=== PATIENT | male | born 1940 | race Caucasian/White ===

== ENCOUNTER 2016-09-06 23:08 | Inpatient (IN) | payer MEDICARE, OTHER ==
[~2016-09-06] VITALS: Ht 175.3 cm; Wt 100.5 kg
--- NOTE | ~2016-09-06 | ECHO ---
Transthoracic Echocardiography Report (TTE) Demographics Patient Name MIKE HILARIO Date of Study 09/07/2016 Patient Number [id number] Visit Number [id number] Date of 1940 Room Number G6319 Gender Male Number Age 76 year(s) Referring Process Line Operator Mina RVT, RDCS Physician Shereen Physician Interpreting Alessandro Thompson Edging Machine Feeder Physician Myles Lira MD Supervising Ordering Teresa Klein MD, MD/MLP Physician Nurse Stress Manager Of Exhibitions And Collections Conclusions Summary Dilated cardiomyopathy with severely reduced LV systolic function with regional wall motion abnormalities. The entire apex and anteroseptal pires appear akinetic. Diastolic assessment reveals Grade I diastolic dysfunction. Device lead noted in the right ventricle. Mild biatrial enlargement. There is mild aortic regurgitation by color Doppler. Procedure Type of Study TTE procedure:2D Echocardiogram, M-Mode, Doppler , Color Doppler. Procedure Date Date: 09/07/2016 Start: 09:27 AM Study Location: Inpatient Portable Technical Quality: Adequate visualization Additional Indications:elevated troponin Appropriate Use Criteria: 9 Patient Status: Routine HR: 109 bpm BP: 117/69 mmHg Allergies - No known allergies. M-Mode/2D Measurements LV Diastolic Dimension: 7.24 cm LV Systolic Dimension: 6.65 cm LV Septum Diastolic: 0.87 cm LV PW Diastolic: 1.08 cm AO Root Dimension: 3.3 cm Cardiac Output: 6.75 l/min AV Cusp Separation: 1.4 cm RV Diastolic Dimension: 2.95 cm LA volume: 40 ml LVOT: 2.2 cm RV Base: 3.41 cm LVOT VTI: 16.3 cm RV Mid: 2.68 cm LV Stroke volume: 61.93 ml TAPSE: 2.52 cm TDI-S': 16.1 cm/s Doppler Measurements AV Peak Velocity: 0.81 m/s MV Peak E-Wave: 0.52 m/s AV Peak Gradient: 2.61 mmHg MV Peak A-Wave: 0.71 m/s AV Mean Gradient: 2 mmHg MV E/A Ratio: 0.74 LVOT Peak Velocity: 0.69 m/s MV P1/2t: 49 msec AV P1/2t: 762 msec TR Gradient:5.66 mmHg PV Peak Velocity: 0.67 m/s Estimated RAP:10 mmHg PV Peak Gradient: 1.77 mmHg Estimated RVSP: 16 mmHg Estimated PASP: 15.66 mmHg E' Septal Velocity: 0.03 m/s A' Septal Velocity: 0.07 m/s E' Lateral Velocity: 0.05 m/s A' Lateral Velocity: 0.1 m/s Findings Left Ventricle The left ventricle is moderately dilated . Diastolic assessment reveals Grade I diastolic dysfunction. Right Ventricle Normal right ventricle structure and function. Device lead noted in the right ventricle. Left Atrium LA is mildly dilated. Right Atrium The right atrium is mildly dilated. IVC measures 2.4 cm. Mitral Valve Trivial mitral regurgitation by color Doppler. Aortic Valve There is mild aortic regurgitation by color Doppler. Mild AV sclerosis. Tricuspid Valve Trivial tricuspid regurgitation by color Doppler. Pulmonic Valve Normal pulmonic valve structure and function. Pericardial Effusion No evidence of pericardial effusion. Pleural Effusion No evidence of pleural effusion. Signature dtt: MARYCARMEN KATZ dtd: 09/07/16 0927 Physician Self Edit
--- NOTE | ~2016-09-06 | DS ---
PATIENT'S NAME: MIKE HILARIO [facility] AGE: 76 Y [address] ROOM: [place] [address] LOCATION: GPCU ADMIT DATE: 09/07/2016 Discharge Summary DISCHARGE DATE: 09/10/2016 FAMILY PHYSICIAN: Physician, Unknown ATTENDING PHYSICIAN: Cornelius Moore PRIMARY DIAGNOSES: 1. Ischemic cardiomyopathy, ejection fraction 10% to 15%. 2. Ventricular tachycardia, status post automatic implantable cardioverter- defibrillator discharge. 3. Atrial fibrillation/flutter. 4. Long-term anticoagulation with warfarin. 5. Essential hypertension. 6. Coronary artery disease. 7. Obstructive sleep apnea. 8. Chronic kidney disease, stage 3. 9. Hypothyroidism. 10. Benign prostatic hypertrophy. 11. History of colon cancer. OPERATIONS/PROCEDURES: Echocardiogram performed 09/07/[address] Bueno showed dilated cardiomyopathy with severely reduced LV systolic function, grade 1 diastolic dysfunction, and biatrial enlargement. HISTORY OF PRESENTING ILLNESS/REASON FOR ADMISSION: Please refer to the H and P dictated 09/07/2016. HOSPITAL COURSE: The patient is admitted to the hospital as noted above after multiple AICD discharge at home. This occurred in the setting of working outside and exerting himself. AICD interrogation revealed that the rhythm shocked was ventricular tachycardia degrading to ventricular fibrillation. There was successful cardioversion on the final AICD discharge. The patient was hemodynamically stable over the course of his hospital stay here. He did not have any significant events noted on telemetry. There was overdrive pacing noted on telemetry monitoring. Cardiology was consulted and echocardiography was carried out as described above. He was monitored and maintained on his amiodarone. It was suggested that he may have eventual followup with Cardiology and ultimately electrophysiology for an evaluation. DISCHARGE INSTRUCTIONS: 1. Diet: Cardiac prudent as tolerated, fluid restrict 2000 mL per day. 2. Activity: As tolerated. PATIENT'S NAME: MIKE HILARIO [facility] AGE: 76 Y [address] ROOM: [place] [address] LOCATION: GPCU ADMIT DATE: 09/07/2016 Discharge Summary DISCHARGE DATE: 09/10/2016 FAMILY PHYSICIAN: Physician, Unknown ATTENDING PHYSICIAN: Cornelius Moore MEDICATIONS: 1. Coumadin 3 mg p.o. every Thursday, Thursday, Thursday, 1.5 mg p.o. every Thursday, , Thursday, Thursday. 2. Amiodarone 400 mg p.o. b.i.d. (increased dose). 3. Aspirin 81 mg p.o. daily. 4. Atorvastatin 80 mg p.o. q.h.s. 5. Carvedilol 12.5 mg p.o. b.i.d. 6. Colace 100 mg p.o. b.i.d. 7. Lasix 20 mg p.o. daily. 8. Isosorbide mononitrate 15 mg p.o. daily. 9. Levothyroxine 88 mcg p.o. daily. 10. Lisinopril 5 mg p.o. daily. 11. Omeprazole 20 mg p.o. b.i.d. 12. Potassium 20 mEq p.o. b.i.d. 13. Spironolactone 25 mg p.o. daily. 14. Flomax 0.4 mg p.o. q.h.s. 15. Acetaminophen 650 mg p.o. q.6 h. p.r.n. 16. CPAP at h.s. 17. Oxygen 2 L per nasal cannula at h.s. with CPAP. 18. Ocuvite Soft Gel 1 tab p.o. q.h.s. 19. Naproxen 220 mg p.o. b.i.d. p.r.n. FOLLOW UP: He will follow up with Dr. Luevano in 2 weeks. He will follow up with his primary care provider in 3 to 5 days. CONDITION ON DISCHARGE: Fair. Total time spent on discharge process was 45 minutes. MD VERNON CORNEJO/darlin /[id number] d: 09/11/16 0343 t: 09/11/16 1726, DISCHARGE SUMMARY
--- NOTE | ~2016-09-06 | HP ---
PATIENT'S NAME: PAINTER [facility] AGE: 76 Y [address] ROOM: [address] [address] [facility] ADMIT DATE: 09/07/2016 History & Physical DISCHARGE DATE: FAMILY PHYSICIAN: PHYSICIAN, UNKNOWN ATTENDING PHYSICIAN: CATIE WILDE DATE OF SERVICE: CHIEF COMPLAINT: AICD firing associated with presyncope and shortness of breath during the AICD firing. 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 yesterday, the patient felt lightheaded and his AICD shocked 4 times. The shock was very painful and at the same time associated with some shortness of breath. After that, the patient was trying to walk to the bathroom. On his way to the bathroom, he had 3 other shocks delivered. This was half an hour later after the first four shocks were delivered. The patient denies any syncope or any chest pain except AICD firing that caused the pain. No cough. No fever. No chills and no palpitation. Family member then brought the patient to [facility]. The patient has not had any more AICD firing. EKG over there performed showed paced rhythm. The patient was later transferred here for further care. REVIEW OF SYSTEMS: As mentioned in the history of present illness. All other system were reviewed and were negative except those mentioned in the history of present illness. PAST MEDICAL HISTORY: 1. Paroxysmal atrial fibrillation, on Coumadin. 2. History of systolic congestive heart failure. 3. Hypertension. 4. Hyperlipidemia. 5. Coronary artery disease, status post stents placed in the past. 6. Ischemic cardiomyopathy, status post AICD implantation, BiV-ICD placement [facility] in 2006 according to the patient. 7. Most recent transthoracic echo was on January 21, 2016 showed EF of 15% to 20% with grade 2 pseudonormal diastolic function. 8. On April 16, 2016, the patient underwent 3 internal shocks cardiac cardioversion via internal cardiac defibrillator. 9. History of colon cancer, status post colectomy in the past. 10. Hypothyroidism. PATIENT'S NAME: [facility] AGE: 76 Y [address] ROOM: [address] [place], [place] [address] [facility] ADMIT DATE: 09/07/2016 History & Physical DISCHARGE DATE: FAMILY PHYSICIAN: PHYSICIAN, UNKNOWN ATTENDING PHYSICIAN: CATIE WILDE 11. Benign prostatic hypertrophy. 12. CKD stage 3. 13. Obstructive sleep apnea. 14. Most recent cardiac catheterization based on [employer] was on January 21, 2016. At that time, it shows severe one-vessel coronary artery disease with occluded stent in the mid LAD, and the patient got PCI to LAD. ALLERGIES: NO KNOWN DRUG ALLERGIES ACCORDING TO THE PATIENT. HOME MEDICATIONS: The patient does not remember. Needs to be reconciled with the pharmacy in the morning. SOCIAL HISTORY: The patient was a former cigarette smoker when he was 18 years old. He only smoked for half pack per day only for few years and then he quit. The patient is a social alcohol drinker. He denies any alcohol abuse. The patient denies any illegal drug use. PAST SURGICAL HISTORY: 1. Status post AICD implantation in 2006 according to the patient. 2. Coronary artery disease, status post cardiac stents placed in the past. 3. Colon cancer, status post colectomy. FAMILY HISTORY: Father from old age in his 70s from a blood clot in the brain. Mother from old age from a cause that he could not remember in her 90s. PHYSICAL EXAMINATION: VITAL SIGNS: At the time of dictation, temperature 98, heart rate 75, respiration 13, blood pressure 147/89, saturation 97% on room air. GENERAL APPEARANCE: Alert and oriented x3, in no acute distress. HEENT: Pupils are equally round and reactive to light. Extraocular muscles intact. Anicteric sclerae. Nasal turbinates are normal bilaterally. Moist oral mucosa. NECK: No JVD. No neck stiffness. CARDIOVASCULAR: Regular rate and rhythm. No murmur. No rubs, no gallops. Normal S1, S2. RESPIRATORY: Clear to auscultation. No rales. No rhonchi. No crackles. No wheezing. ABDOMEN: Soft, obese, nontender, nondistended, normal bowel sounds, no hepatosplenomegaly. Bowel sounds are present. EXTREMITIES: No edema in upper or lower extremities. PATIENT'S NAME: MIKE HILARIO [facility] AGE: 76 Y [address] ROOM: [address] [place], [place] [address] [facility] ADMIT DATE: 09/07/2016 History & Physical DISCHARGE DATE: FAMILY PHYSICIAN: PHYSICIAN, UNKNOWN ATTENDING PHYSICIAN: CATIE WILDE NEUROLOGIC: Grossly Nonfocal. SKIN: No ulcer, no rash, no cyanosis. MUSCULOSKELETAL: No joint pain. No muscle pain. Range of motion intact. LABORATORY DATA: Troponin 2.740, CPK 274, proBNP 1790, CK-MB 6.5. White blood cells 7.4, hemoglobin 12.4, hematocrit 38.8, MCV 97.5, platelet 165. Glucose 92, BUN 27, creatinine 1.9, sodium 146, potassium 4.1, chloride 113, CO2 of 26, calcium 7.4. Total protein 6.4, albumin 3.1, AST 23, ALT 23, alkaline phosphatase 90, total bilirubin 0.4, direct bilirubin less than 0.1. Magnesium 2.3. GFR 34. Anion gap 11.1. INR 2.4, PTT 38. IMAGING DATA: EKG from the outside facility performed at 9:32 p.m. in [place] showed paced rhythm. EKG here on admission on September 07, 2016, at 1:26 a.m. showed paced rhythm, also heart rate 77. Chest x-ray on admission, official reading is pending. Based on my review, grossly unremarkable. ASSESSMENT AND PLAN: 1. Regarding his AICD firing: We will have AICD pacemaker interrogation in the morning. Currently, the patient is in paced rhythm. Heart rate in the 70s, blood pressure in the 140s. I will watch the patient very closely in the PCU with telemetry monitoring, and if the patient shows any rhythm of ventricular tachycardia, then amiodarone bolus followed by drip will be started. The patient's home medication has to be addressed with the pharmacy in the morning, and then can be addressed. I will also repeat EKG in the morning and place a Cardiology consult in the morning and also cycle cardiac enzymes and keep the potassium more than 4 and magnesium more than 2. Further plan depends on clinical course. 2. Regarding his troponin elevation secondary to non-ST elevation myocardial infarction and AICD shocks: The patient's INR is already therapeutic. I will start the patient on ACS protocol except heparin drip or nitroglycerin drip given that the patient currently is chest pain-free and is comfortable, resting in bed. Further plan depends on clinical course. I will get a transthoracic echo in the morning. N.p.o. 3. Regarding his history of coronary artery disease, status post stents placed in the past and PCI to LAD in January 2016: As mentioned before, we will cycle cardiac enzymes. Repeat EKG and also start the ACS protocol and have a pacemaker interrogation in the morning. Watch him very closely in the PCU. 4. Regarding his history of Paroxysmal atrial fibrillation: Currently paced rhythm. INR is already therapeutic. We will repeat labs in the morning. Telemetry monitoring. Keep the electrolytes with potassium more than 4, PATIENT'S NAME: MIKE HILARIO [facility] AGE: 76 Y [address] ROOM: [address] [place], [place] [address] [facility] ADMIT DATE: 09/07/2016 History & Physical DISCHARGE DATE: FAMILY PHYSICIAN: PHYSICIAN, UNKNOWN ATTENDING PHYSICIAN: CATIE WILDE magnesium more than 2. If the patient goes into atrial fibrillation with rapid ventricular response, we will start amiodarone drip. Home medication has to be reconciled with the patient's pharmacy in the morning and then can be addressed. 5. Regarding his history of systolic congestive heart congestive: Currently, the patient seems euvolemic. While the patient is n.p.o., I will give him gentle hydration at a slow rate. 6. Regarding his hypertension. Home medication will be addressed in the morning once the patient's medication list is ready. We will be using beta radha as part of the ACS protocol for now. 7. Regarding his hyperlipidemia: We will check A1c and also a lipid panel in the morning, and the patient will be getting the Lipitor 80 mg x1 and then daily per ACS protocol. 8. History of ventricular tachycardia: Currently paced rhythm. If the patient goes into ventricular tachycardia, we will start the patient on amiodarone bolus, then followed by drip. Currently, the patient is hemodynamically stable. 9. Regarding his hypothyroidism: We will check a TSH and wait for the home medication list to be ready, then can assess if the home medication dose has to be adjusted. 10. History of chronic kidney disease stage 3: Currently is at baseline. IV fluids while n.p.o. with gentle hydration. 11. Deep venous thrombosis: INR is already therapeutic. Time spent in care on the day of admission 45 minutes including chart review, interviewing the patient, addressing all the questions and concerns of the patient, examining the patient, and went over the plan of care in detail with the patient and the nurse. Half of the total time was spent in chart review, interviewing and examining the patient. The other half of the total time was spent in counseling, including going over the plan of care and also addressing all the patient's questions and concerns to his satisfaction. Further plan will depend on clinical course. MD TONY ALFONSO/darlin /[id number] D: [id number] T: [id number] HISTORY & PHYSICAL
--- NOTE | ~2016-09-06 | CON ---
PATIENT'S NAME: MIKE DOTY [facility] AGE: 76 Y [address] ROOM: [place] [address] LOCATION: GPCU ADMIT DATE: 09/07/2016 Consultation DISCHARGE DATE: FAMILY PHYSICIAN: PHYSICIAN, UNKNOWN ATTENDING PHYSICIAN: CATIE WILDE DATE OF CONSULTATION: 09/07/2016 REFERRING PHYSICIAN: RAMONA MAYO MD CARDIOLOGY CONSULTATION REPORT REFERRING PHYSICIAN: Catie Wilde MD REASON FOR CONSULTATION: Recurrent ICD discharges. HISTORY OF PRESENT ILLNESS: Mr. Doty is a pleasant 76-year-old male with history of ischemic cardiomyopathy with left ventricle ejection fraction of 15% to 20% status post ICD placement. 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 The patient stated the shocks were painful. No loss of consciousness. He was seen in local emergency room and then was subsequently transferred here for further management. He normally follows with Dr. Luevano. Presently, he is asymptomatic. REVIEW OF SYSTEMS: The patient complained of mild diminution in vision. No history of nausea or vomiting. No history of diarrhea or constipation. No history of fever. No history of cough or expectoration. Has chronic mild shortness of breath. However, patient denied any recent worsening. No history of palpitations. No history of syncope. No history of fever. Review of other systems was essentially negative. PAST MEDICAL HISTORY: 1. History of ischemic cardiomyopathy. 2. Ventricular tachycardia. 3. Paroxysmal atrial fibrillation. 4. Coronary artery disease. 5. Chronic systolic heart failure with ejection fraction of 15% to 20% status post Bi-V ICD placement. 6. Hypertension. 7. History of colon cancer. 8. Hypothyroidism. 9. BPH. PATIENT'S NAME: MIKE DOTY [facility] AGE: 76 Y [address] ROOM: [place] [address] LOCATION: GPCU ADMIT DATE: 09/07/2016 Consultation DISCHARGE DATE: FAMILY PHYSICIAN: PHYSICIAN, UNKNOWN ATTENDING PHYSICIAN: CATIE WILDE SOCIAL HISTORY: The patient lives with his at home. He works on the farm. FAMILY HISTORY: The patient stated his parents did not have any coronary artery disease. Per his chart, one of his brothers had coronary artery disease. PAST SURGICAL HISTORY: 1. History of inguinal hernia repair. 2. Colonoscopy with polypectomy. 3. Colon resection in 2016. CURRENT MEDICATIONS: Include: 1. Aspirin 81 mg daily. 2. Atorvastatin 80 mg daily. 3. Metoprolol tartrate 25 mg b.i.d. PHYSICAL EXAMINATION: GENERAL APPEARANCE: He is awake, alert, and oriented. His pulse rate is 81 beats per minute, blood pressure is 119/68 mmHg, respiratory rate is 18, and temperature is 36.7 degrees centigrade. HEENT: Head is atraumatic and normocephalic. Tongue is moist. NECK: No significant jugular venous distention is present. CARDIOVASCULAR: S1 and S2 are audible. They are regular in rate and rhythm with no audible murmurs. RESPIRATORY: Bilateral vesicular breath sounds are audible with no adventitious sounds. ABDOMEN: Mildly distended. Soft. Nontender. Bowel sounds are present. EXTREMITIES: Showed no significant pedal edema. NEUROLOGIC: The patient is awake, alert, and oriented. SKIN: Warm and dry. MUSCULOSKELETAL: The patient has 5/5 power in all 4 extremities. LABORATORY DATA: Sodium 148, potassium 4.0, chloride 113, CO2 of 27, glucose 94, BUN 24, and creatinine 1.7. Serum creatinine was 2.3 in April. Magnesium is 2.5. Total cholesterol 188, HDL 38, and LDL 120. CPK 260, CK-MB 6.3, and troponin 3.4, and his serial troponins were 2.74 and 3.4. White blood cell count 7.4, hemoglobin 12.4, hematocrit 38.8, and platelet count 165,000. The patient had catheterization in 2015 which showed severe one-vessel CAD with occluded stent in mid LAD. His echocardiogram showed ejection fraction of 15% to 20%, moderate aortic regurgitation, [id number] tricuspid regurgitation, and moderate to severely reduced right ventricular systolic function. PATIENT'S NAME: MIKE DOTY [facility] AGE: 76 Y [address] ROOM: [id number] [place] [id number] [facility] ADMIT DATE: 09/07/2016 Consultation DISCHARGE DATE: FAMILY PHYSICIAN: PHYSICIAN, UNKNOWN ATTENDING PHYSICIAN: CATIE WILDE ASSESSMENT AND PLAN: 1. Ischemic cardiomyopathy with ejection fraction of 15% to 20%. No clinical evidence of decompensation. 2. Status post biventricular implantable cardioverter-defibrillator placement with recurrent shocks. We will get implantable cardioverter- defibrillator interrogation to determine the etiology for the shocks. 3. Chronic renal insufficiency. 4. Elevated troponin. Elevated troponin is likely due to recurrent implantable cardioverter-defibrillator shocks. The patient had 7 implantable cardioverter-defibrillator shocks. However, in view of coronary artery disease, we will consider stress test to evaluate for new ischemia. We will continue to monitor patient on telemetry. We will monitor electrolytes and keep potassium around 4 mEq/L and magnesium around 2 mmol/dL. 5. The plan of care was discussed with the patient. We will follow the patient along with you. Thank you for allowing [facility] in taking part in the care of this patient. MD JEANA GONZALES/darlin /[id number] d: 09/07/16 1404 t: 09/25/16 1745, CONSULTATION REPORT
[~2016-09-06 23:08] MED LIST changes: -ALDACTONE25 MG PO; -BIOFREEZE89 ML TOP; -COREG6.25 MG PO; -LIPITOR80 MG PO; -TYLENOL325 MG PO; -ZOCOR20 MG PO
[2016-09-07 01:43] LABS: BASOPHIL % 0.5 %; EOSINOPHIL # 0.1 K/uL (0.0-0.5); EOSINOPHIL % 1.5 %; HEMATOCRIT 38.8 % (37.0-53.0); HEMOGLOBIN 12.4 g/dL (11.0-16.0); IMMATURE GRANULOCYTE % 0.3 %; LYMPHOCYTE # 1.5 K/uL (0.8-4.0); LYMPHOCYTE % 19.9 %; MCH 31.2 pg (27.0-34.0); MCV 97.5 fl (83.0-98.0); MONOCYTE # 0.9 K/uL (0.0-1.0); MONOCYTE % 12.2 %; NEUTROPHIL # (ANC) 4.8 K/uL (1.4-9.0); NEUTROPHIL % 65.6 %; NRBC % 0 /100WBC (0-0.00); PLATELET COUNT 165 K/uL (150-450); RBC 3.98 M/uL (3.50-5.50); RDW-CV 16.7 % (11.9-14.6); WBC 7.4 K/uL (4.0-11.0)
[2016-09-07 01:52] LABS: PROTIME 25.4 SECONDS (9.8-11.4); PTT 38 SECONDS (25-32)
[2016-09-07 02:04] LABS: ALBUMIN 3.1 gm/dL (3.5-5.0); ALK PHOS 90 IU/L (33-138); ALT 23 IU/L (12-78); AST 23 IU/L (10-40); BLOOD UREA NITROGEN 27 mg/dL (6-24); CALCIUM 7.9 mg/dL (8.5-10.5); CHLORIDE 113 mMol/L (96-110); CO2 26 mMol/L (22-32); CPK 274 IU/L (35-332); CREATININE 1.9 mg/dL (0.6-1.3); ESTIMATED GFR (MDRD EQUATION) 34; MAGNESIUM 2.3 mg/dL (1.8-2.6); POTASSIUM 4.1 mMol/L (3.7-5.1); TOTAL BILIRUBIN 0.4 mg/dL (0.0-1.5); TOTAL PROTEIN 6.4 g/dL (6.0-8.4)
[2016-09-07 02:05] LABS: ANION GAP 11.1 (10.0-19.0); SODIUM 146 mMol/L (135-145)
--- NOTE | 2016-09-07 03:33 | NUR ---
D: PT ADMITED PER FLIGHT FROM [facility]. PT HAD C/O AICD FIRING X 7 FROM [id number]. INTO ROOM 6319 I: DR. WILDE IN TO SEE PT, SEE ORDERS. R: TOLERATED WELL. NO VT ON BRICK AND BLOCKER AID LABOR SINCE ARRIVAL. NOTED TO HAVE DUAL PACING 100% OF TIME. P: CONT. TO MONITOR.
--- NOTE | 2016-09-07 05:15 | NUR ---
Significant Event: Patient is alert/oriented x3. Vital signs are stable. On 2L O2. He has not had any issues with AICD firing since being on the floor. Denies any pain. Currently NPO and on IV fluids. Trending cardiac enzymes; TN-I was 0.52 in [facility] around 2230 and TN-I was 2.740 here around 0100. Labs do show some renal insufficiency. Patient denies any ACS-like symptoms. Follow up: Cardiology consult, EKG, and AICD interrogation this AM. Continue to monitor cardiac enzymes.
[2016-09-07 07:20] LABS: INR - (THERAPEUTIC) 2.37 (0.92-1.07); PROTIME 25.1 SECONDS (9.8-11.4)
[2016-09-07 07:35] LABS: CREATININE 1.7 mg/dL (0.6-1.3); MAGNESIUM 2.5 mg/dL (1.8-2.6)
[2016-09-07] MEDS ORDERED: COREG6.25 MG PO (10:18)
[2016-09-07] MEDS ORDERED: ALDACTONE25 MG PO (10:19)
--- NOTE | 2016-09-07 17:58 | NUR ---
Significant Event: SBP 100-117. HR 60-70'S. PACER/AICD INTERROGATED WITH CONFIRMATION OF SHOCKS AND ARRHYTHMIA. HOME MEDICATIONS ADJUSTED WITH PARAMETERS AVAILABLE. NO C/O PAIN. SBA WITH ACTIVITY. NA+ 146 WITH D5W GOING AT 50ML/HR VIA R) PIV. L) AC PIV SL'D. ECHO TODAY. TROPONIN TRENDING DOWN WITH LAST LEVEL 1.9. Follow up: LABS IN AM. CONT D5W AT 50ML/HR. MONITOR PER PLAN OF CARE.
--- NOTE | 2016-09-08 05:00 | NUR ---
Significant Event: Patient is alert/oriented x3. Vital signs are stable. On room air. Denies any pain. No ectopy throughout the night. Cardiac enzymes trending down. Continues on D5W at 50 mL/hr. Follow up: Might get stress test?
[2016-09-08 07:24] LABS: BASOPHIL % 0.8 %; EOSINOPHIL # 0.1 K/uL (0.0-0.5); EOSINOPHIL % 2.6 %; HEMATOCRIT 37.4 % (37.0-53.0); HEMOGLOBIN 11.9 g/dL (11.0-16.0); IMMATURE GRANULOCYTE % 0.4 %; LYMPHOCYTE # 1.2 K/uL (0.8-4.0); LYMPHOCYTE % 23.4 %; MCH 31.2 pg (27.0-34.0); MCHC 31.8 gm/dL (32.0-36.5); MCV 98.2 fl (83.0-98.0); MONOCYTE # 0.6 K/uL (0.0-1.0); MONOCYTE % 12.3 %; MPV 9.6 fl (9.4-12.4); NEUTROPHIL # (ANC) 3.1 K/uL (1.4-9.0); NEUTROPHIL % 60.5 %; NRBC % 0 /100WBC (0-0.00); PLATELET COUNT 146 K/uL (150-450); RBC 3.81 M/uL (3.50-5.50); RDW-CV 16.2 % (11.9-14.6); WBC 5.1 K/uL (4.0-11.0)
[2016-09-08 07:30] LABS: INR - (THERAPEUTIC) 2.34 (0.92-1.07); PROTIME 24.8 SECONDS (9.8-11.4)
[2016-09-08 07:38] LABS: ALBUMIN 2.8 gm/dL (3.5-5.0); CALCIUM 7.9 mg/dL (8.5-10.5); CREATININE 1.4 mg/dL (0.6-1.3); MAGNESIUM 2.5 mg/dL (1.8-2.6); TOTAL BILIRUBIN 0.4 mg/dL (0.0-1.5); TOTAL PROTEIN 5.8 g/dL (6.0-8.4)
--- NOTE | 2016-09-08 17:12 | NUR ---
Significant Event: FIRST BP THIS AM 106/61 WITH COREG AND IMDUR GIVEN SCHEDULED. ALL OTHER AM BP MEDS HELD D/T SBP 70-90'S. PER DR MAYO, COREG AND AMIODARONE MOST IMPORTANT AND TO RECEIVE FIRST BEFORE ANY OTHER MEDS IF SBP WITHIN PARAMETERS. NO C/O PAIN. PIV DC'D FROM L) AC D/T LEAKING WITH R) INNER FA PIV SL'D. WORKED WITH THERAPY TODAY. SBA WITH BM NOTED AND VOIDS ADEQ AMT PER URINAL. Follow up: LABS IN AM. CONT TO MONITOR.
[2016-09-09 03:57] LABS: BASOPHIL # 0.1 K/uL (0.0-0.2); BASOPHIL % 0.9 %; EOSINOPHIL # 0.1 K/uL (0.0-0.5); EOSINOPHIL % 2.4 %; HEMATOCRIT 39.3 % (37.0-53.0); HEMOGLOBIN 12.4 g/dL (11.0-16.0); IMMATURE GRANULOCYTE % 0.2 %; LYMPHOCYTE # 1.4 K/uL (0.8-4.0); LYMPHOCYTE % 23.7 %; MCH 30.8 pg (27.0-34.0); MCHC 31.6 gm/dL (32.0-36.5); MCV 97.8 fl (83.0-98.0); MONOCYTE # 0.8 K/uL (0.0-1.0); MONOCYTE % 13.5 %; MPV 9.8 fl (9.4-12.4); NEUTROPHIL # (ANC) 3.4 K/uL (1.4-9.0); NEUTROPHIL % 59.3 %; NRBC % 0 /100WBC (0-0.00); PLATELET COUNT 155 K/uL (150-450); RBC 4.02 M/uL (3.50-5.50); RDW-CV 16.2 % (11.9-14.6); WBC 5.8 K/uL (4.0-11.0)
[2016-09-09 04:21] LABS: ANION GAP 12.3 (10.0-19.0); CALCIUM 8.1 mg/dL (8.5-10.5); CREATININE 1.6 mg/dL (0.6-1.3); MAGNESIUM 2.4 mg/dL (1.8-2.6); PHOSPHORUS 2.7 mg/dL (2.5-4.9); POTASSIUM 4.3 mMol/L (3.7-5.1)
[2016-09-09 10:31] LABS: INR - (THERAPEUTIC) 2.15 (0.92-1.07); PROTIME 22.8 SECONDS (9.8-11.4)
--- NOTE | 2016-09-09 12:15 | NUR ---
Introduced self and care management services to patient. Lies in [place] with . Plans on going home on discharge, denies concerns about going home, denies needs, is independent and active and has family to help if needed. Complaint Clerk will follow and assist with dc planning as needs identified.
--- NOTE | 2016-09-09 19:02 | NUR ---
Significant event: A&Ox3, denies cardiac pain, does have chronic back pain. Up SBA. Had 1 vd and then 350 ml in urinal after educating patient on needs I&O's. Fluid restriction started. Follow Up: Possibly home tomorrow?
--- NOTE | 2016-09-10 04:49 | NUR ---
Significant Event: A/0 X 3, SBP 100 TO 115, HR 60'S TO 70'S, DID HAVE TO PUT 2L 02 ON WHILE SLEEPING. AFEBRILE. ONLY COMPLICATIONS DURING SHIFT WAS SOME BACK PAIN. ICEY/HOT APPLIED AND HE HAS RESTED WELL THE REST OF THE EVENING WITH NO COMPLICATIONS. Follow up: POSSIBLE DISCHARGE TO HOME TODAY
[2016-09-10 06:58] LABS: ALBUMIN 2.9 gm/dL (3.5-5.0); CALCIUM 8.2 mg/dL (8.5-10.5); CREATININE 1.7 mg/dL (0.6-1.3); PHOSPHORUS 2.7 mg/dL (2.5-4.9)
[2016-09-10 07:03] LABS: ANION GAP 11.4 (10.0-19.0); POTASSIUM 4.4 mMol/L (3.7-5.1)
[2016-09-10] MEDS ORDERED: LIPITOR80 MG PO (10:18)
[2016-09-10] MEDS ORDERED: TYLENOL325 MG PO (10:36)
[2016-09-10] MEDS ORDERED: BIOFREEZE89 ML TOP (10:42)
[2016-09-10] MEDS ORDERED: COUMADIN ** IA3 MG PO (10:49)
--- NOTE | 2016-09-10 13:19 | NUR ---
PATIENT STABLE, A&OX3, DENIES CARDIAC PAIN, DOES HAVE CHRONIC BACK PAIN TREATING WITH TYLENOL AND ICY HOT. EDUCATED PATIENT ON DISCHARGE INSTRUCTIONS, HOME MEDICATION LIST, AND GIVEN PRESCRIPTIONS.
== END 2016-09-10 11:40 | disposition disaster alternative care site (69) | DRG 303 ==
LOC: GPCU 23:08
PROVIDERS: Family Medicine; Internal Medicine Interventional Cardiology; Nurse Practitioner Acute Care; ADMIT Internal Medicine
PROC: B246ZZZ Ultrasonography of Right and Left Heart (ICD-10-PCS; principal; 2016-09-07)
DX: I25.5 Ischemic cardiomyopathy (principal); I47.2 Ventricular tachycardia; E11.22 Type 2 diabetes mellitus with diabetic chronic kidney disease; I13.0 Hypertensive heart and chronic kidney disease with heart failure and stage 1 through stage 4 chronic kidney disease, or unspecified chronic kidney disease; I50.32 Chronic diastolic (congestive) heart failure; I50.22 Chronic systolic (congestive) heart failure; E03.9 Hypothyroidism, unspecified; N18.3 Chronic kidney disease, stage 3 (moderate); I48.0 Paroxysmal atrial fibrillation; E78.5 Hyperlipidemia, unspecified; Z95.810 Presence of automatic (implantable) cardiac defibrillator; Z85.038 Personal history of other malignant neoplasm of large intestine; G47.33 Obstructive sleep apnea (adult) (pediatric)
CPT/HCPCS: J3480; J7060

== ENCOUNTER → 2016-09-06 | Outpatient (CLI) | payer MEDICARE, OTHER ==
[~2016-09-06] MED LIST: ALDACTONE25 MG PO; ALEVE220 MG PO; ASPIRIN EC81 MG PO; ASPIRIN325 MG PO; BIOFREEZE89 ML TOP; COLACE100 MG PO; CORDARONE,PACE200 MG PO; COREG6.25 MG PO; COUMADIN ** IA3 MG PO; CPAP INH; FLOMAX0.4 MG PO; IMDUR30 MG PO; K-TAB ER20 MEQ PO; LASIX20 MG PO; LEVOTHROID (SY88 MCG PO; LIPITOR80 MG PO; LOPRESSOR25 MG PO; OCUVITE SOFTGE1 EACH PO; OXYGEN M-15 INH; POTASSIUM GLUCO99 MG PO; PRILOSEC20 MG PO; PRINIVIL (ZESTRI5 MG PO; SINGULAIR10 MG PO; TYLENOL325 MG PO; XELODA500 MG PO; ZOCOR20 MG PO
== END | disposition disaster alternative care site (69) ==
LOC: GAIR 23:59
DX: I49.9 Cardiac arrhythmia, unspecified (principal); I50.9 Heart failure, unspecified; I42.9 Cardiomyopathy, unspecified; T82.198A Other mechanical complication of other cardiac electronic device, initial encounter; I48.91 Unspecified atrial fibrillation; E78.5 Hyperlipidemia, unspecified; R06.02 Shortness of breath; R60.9 Edema, unspecified; R42 Dizziness and giddiness; Z85.038 Personal history of other malignant neoplasm of large intestine
CPT/HCPCS: A0422; A0431; A0436

== ENCOUNTER 2016-09-18 00:33 | Inpatient (IN) | payer MEDICARE, OTHER ==
[~2016-09-18] VITALS: Ht 175.3 cm; Wt 99.9 kg
--- NOTE | ~2016-09-18 | HP ---
PATIENT'S NAME: MIKE HILARIO [facility] AGE: 76 Y [address] ROOM: [id number] [place], [place] [address] LOCATION: GPCU ADMIT DATE: 09/18/2016 History & Physical DISCHARGE DATE: FAMILY PHYSICIAN: PHYSICIAN, UNKNOWN ATTENDING PHYSICIAN: CATIE WILDE DATE OF SERVICE: CHIEF COMPLAINT: AICD discharge seven times. HISTORY OF PRESENT ILLNESS: This is a 76-year-old male who says that around 6 p.m. 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 He went back home to try to get some rest and then he felt another 4 shocks again. So, he called his and he was brought to [place] for evaluation. EKG from outside facility at [place] did not show evidence of a ventricular tachycardia but with a paced rhythm. This was given to me by verbal report. I do not find the EKG upon patient arrival. I will put a request for them to send EKG from the outside facility. The patient was later transferred here for further care. The patient has not had any more AICD discharge since then. The patient denies any chest pain or shortness of breath or fever or chills or cough or palpitation or any other symptoms. He did have a chest pain when he got a shock, but after the shock he denies any chest pain. The patient was also recently discharged from our hospital roughly a week ago for the same problem. Based on the discharge summary, the patient was supposed to see his primary stem crusher for followup to see if he could benefit from Electrophysiology for possible ablation. The patient told me that he went to see his primary stem crusher last Thursday, but the patient is somehow a poor historian, he could not remember what was discussed during the last visit. REVIEW OF SYSTEMS: As mentioned in the history of present illness. All other system were reviewed and were negative except those mentioned in the history of present illness. PAST MEDICAL HISTORY: 1. Paroxysmal atrial fibrillation, on Coumadin. 2. History of systolic CHF with most recent echo done on 09/07/2016 show dilated cardiomyopathy with severely reduced left ventricular systolic function with regional wall motion abnormalities. The entire apex and anteroseptal pires appear akinetic. Diastolic assessment revealed grade 1 diastolic dysfunction. Device lead noted in the right ventricle. Mild biatrial enlargement. There is mild aortic regurgitation. PATIENT'S NAME: MIKE HILARIO [facility] AGE: 76 Y [address] ROOM: [id number] [place], [place] [address] [facility] ADMIT DATE: 09/18/2016 History & Physical DISCHARGE DATE: FAMILY PHYSICIAN: PHYSICIAN, UNKNOWN ATTENDING PHYSICIAN: CATIE WILDE 3. Hypertension. 4. Hyperlipidemia. 5. Coronary artery disease, status post stents placed in the past. 6. Ischemic cardiomyopathy, status post AICD implantation, BiV ICD placement, [place] in 2006 according to the patient. 7. On 04/16/2016, the patient underwent 3 internal shocks, cardiac cardioversion via internal cardiac defibrillator. 8. History of colon cancer, status post colectomy in the past. 9. Hypothyroidism. 10. Benign prostatic hypertrophy. 11. CKD stage 3. 12. IRAJ, not on home CPAP given that the patient is noncompliant and also not on home oxygen also because he is noncompliant. 13. Most recent cardiac catheterization based on the [employer] was on 01/21/2016. At that time, it showed severe 1-vessel coronary artery disease with occluded stent in the mid LAD and the patient got PCI to LAD. ALLERGIES: NO KNOWN DRUG ALLERGIES ACCORDING TO THE PATIENT. HOME MEDICATIONS: The patient does not remember, but the patient says that he is very compliant and he takes medication every day without missing any dose. The medication list has to be reconciled in the morning and then can be addressed. The patient states that he already took the amiodarone and also took the Coumadin already before coming to the hospital. SOCIAL HISTORY: The patient was a former cigarette smoker when he was 18 years old. He only was smoking about half pack per day only for few years and then he quit. The patient is a social alcohol drinker. He denies any alcohol abuse. The patient denies any illegal drug use. PAST SURGICAL HISTORY: 1. Status post AICD implantation in 2006 according to the patient. 2. Coronary artery disease, status post cardiac stents placed in the past. 3. Colon cancer, status post colectomy in the past. FAMILY HISTORY: Father from old age in the 70 from a blood clot in the brain. Mother from an old age from a cause that he could not remember in her 90s. PHYSICAL EXAMINATION: PATIENT'S NAME: MIKE HILARIO [facility] AGE: 76 Y [address] ROOM: [address] [place], [place] [address] [facility] ADMIT DATE: 09/18/2016 History & Physical DISCHARGE DATE: FAMILY PHYSICIAN: PHYSICIAN, UNKNOWN ATTENDING PHYSICIAN: CATIE WILDE VITAL SIGNS: At time of my dictation, temperature 98.2, heart rate 76, respirations 16, blood pressure 107/57, saturation 94% on 1 L nasal cannula. GENERAL APPEARANCE: Alert and oriented x3, in no acute distress. HEENT: Pupils equally round and reactive to light. Extraocular muscles intact. Anicteric sclerae. Nasal turbinates are normal bilaterally. Moist oral mucosa. NECK: No JVD. CARDIOVASCULAR. Regular rate and rhythm. No murmur, no rubs, no gallops at the moment. RESPIRATORY: Clear. Chest wall nontender to palpation. No wheezing, no rales, no rhonchi, no crackles. ABDOMEN: Soft, nontender, nondistended, normal bowel sounds, and no hepatosplenomegaly. Bowel sounds are present. No mass. Nondistended. Soft. EXTREMITIES: No edema in upper or lower extremities. NEUROLOGIC: Grossly nonfocal. SKIN: No ulcer, no rash, no cyanosis. NEUROLOGICAL: Grossly nonfocal. MUSCULOSKELETAL: No joint pain. No muscle pain. LABORATORY DATA: Troponin 4.870. CPK pending. ProBNP pending. White blood cells 7.2, hemoglobin 12.4, hematocrit 38.8, MCV 97.5, platelet 158. Glucose 123, BUN 35, creatinine 1.9, sodium 144, potassium 4.6, chloride 115, CO2 of 22, calcium 8.1. Total protein 6.4, albumin 3.1, AST 36, ALT 31, alkaline phosphatase 111, total bilirubin 0.3. Magnesium pending. GFR 34. A1c back on 09/07/2016 was 5.8. Lipid panel; LDL 120, triglyceride 150, total cholesterol 188, HDL 38; this was on 09/07/2016. INR pending. CK-MB 11.8. TSH 3.6 back on 09/07/2016. IMAGING STUDIES: Chest x-ray on admission, the official report is pending. Please follow up with the official reading in the morning. Based on my review, grossly unremarkable. EKG on admission here on 09/18/2016 at 12:45 a.m. showed no evidence of obvious ST elevation or ST depression. The patient has no chest pain. Heart rate of 97. Sinus rhythm. QTc 545 ;milliseconds. Compared to the prior EKG back on 04/18/2016 at 10:57 p.m., difficult to be interpreted given that is paced, heart rate 153 at that time. Compared to the other prior EKG more recent one back on 09/09/2016 at 7:08 a.m. showed paced rhythm. Heart rate of 137. Difficult to be interpreted because he has a paced rhythm in the setting of AICD. PATIENT'S NAME: MIKE HILARIO [facility] AGE: 76 Y [address] ROOM: [place] [address] LOCATION: [facility] ADMIT DATE: 09/18/2016 History & Physical DISCHARGE DATE: FAMILY PHYSICIAN: PHYSICIAN, UNKNOWN ATTENDING PHYSICIAN: CATIE WILDE ASSESSMENT AND PLAN: 1. Regarding his AICD discharge. N.p.o. Cardiology consult in the morning. Cycle cardiac enzymes every 6 hours. The troponin elevation is from the AICD discharge, just like last admission. I will get AICD interrogation again. Telemetry monitoring. If the patient goes into ventricular tachycardia, I will do the IV amiodarone bolus followed by the IV amiodarone drip in that case. Keep the potassium more than 4 and magnesium more than 2. Further plan will depend on the Cardiology evaluation. Home medication has to be addressed in the morning. I have already continued the most important ones based on the last discharge summary, which was very recent, roughly 8 days ago. 2. Regarding his ischemic cardiomyopathy, status post AICD implantation. As mentioned before, we will get the AICD interrogation. 3. History of atrial fibrillation and atrial flutter. Currently, he is in paced rhythm on the telemetry monitoring. Continue home medication including p.o. amiodarone, p.o. Coreg, and p.o. Coumadin. INR is pending at the moment. 4. Regarding his hypertension. Continue home medication including p.o. Coreg and also p.o. lisinopril. 5. Regarding his obstructive sleep apnea. Oxygen via nasal cannula given that the patient is noncompliant with CPAP. 6. Chronic kidney disease stage 3. At baseline right now. Can continue on the p.o. lisinopril. The patient is n.p.o. I will give him some IV fluids for gentle hydration with normal saline at 60 mL/h. 7. Hypothyroidism. TSH was normal just last month; therefore, I am not going to repeat. Continue the home dose, continue the same dose once the medication list is reconciled in the morning. 8. Regarding his history of ischemic cardiomyopathy. As mentioned before, continue the home medication which also includes aspirin and atorvastatin and Coreg and isosorbide mononitrate and p.o. lisinopril as well as p.o. amiodarone. 9. Regarding his deep venous thrombosis prophylaxis. The patient is already on Coumadin. Time spent in care on the day of admission 35 minutes including half of the time was spent on the chart review and also examination and interview and the other half of the total time spent was in counseling including addressing all the questions and concerns that the patient had and also going over the plan of care with the patient. I answered all his questions to his satisfaction. I also went over the plan of care with the nurse. Further plan will depend on clinical course. PATIENT'S NAME: MIKE HILARIO [facility] AGE: 76 Y [address] ROOM: [place] [address] [facility] ADMIT DATE: 09/18/2016 History & Physical DISCHARGE DATE: FAMILY PHYSICIAN: PHYSICIAN, UNKNOWN ATTENDING PHYSICIAN: CATIE WILDE MD CC/jaycel /[id number] D: T: HISTORY & PHYSICAL
--- NOTE | ~2016-09-18 | ER ---
PATIENT'S NAME: MIKE HILARIO [facility] AGE: 76 Y [address] ROOM: [place] [address] LOCATION: GPCU ADMIT DATE: 09/18/2016 ER/Outpatient Report DISCHARGE DATE: FAMILY PHYSICIAN: PHYSICIAN, UNKNOWN ATTENDING PHYSICIAN: CATIE WILDE CHIEF COMPLAINT: Defibrillator issues. HISTORY OF PRESENT ILLNESS: The patient arrives by [employer] from [place]. Around 1830 hours, the patient had 6-8 shocks over the course of 20-30 minutes. No further discharges since that time. He presented to a local hospital and was found to have some elevation of his troponin. He was started on a heparin drip and was flown in. There was some concern that he may need ICU level care and thus he was stopped in the emergency department. The patient denies any symptoms at this time. He does note that just before his defibrillator goes off he does feel unusual in the head. Of note, the defibrillatory only goes off when he is trying to do something such as walk or go to the garden and it has never gone off at rest. He was recently admitted for same. PAST MEDICAL HISTORY: Documented on the record and reviewed by me. SOCIAL HISTORY: Documented on the record and reviewed by me. MEDICATIONS: Documented on the record and reviewed by me. ALLERGIES: DOCUMENTED ON THE RECORD AND REVIEWED BY ME. REVIEW OF SYSTEMS: All systems were reviewed and negative except as noted in the HPI. PHYSICAL EXAMINATION: VITAL SIGNS: Vital signs were obtained as follows, blood pressure 100/59, pulse 88, respiratory rate 16, temp 97.7, and SpO2 is 98% on room air. Pain 0/10. GENERAL: Age-appropriate male, in no obvious pain or distress, resting comfortably on exam table. NEURO: Awake and alert. GCS 15. No focal deficits. No asymmetry. HEENT: Normocephalic, atraumatic. Eyes are PERRL. Oropharynx is clear. NECK: Supple. Trachea is midline. PATIENT'S NAME: MIKE HILARIO [facility] AGE: 76 Y [address] ROOM: [place] [address] LOCATION: GPCU ADMIT DATE: 09/18/2016 ER/Outpatient Report DISCHARGE DATE: FAMILY PHYSICIAN: PHYSICIAN, UNKNOWN ATTENDING PHYSICIAN: CATIE WILDE CHEST: Heart is regular rate, borderline tachycardia, with no obvious murmurs. LUNGS: Clear to auscultation bilateral. ABDOMEN: Benign. BACK: Normal to inspection and palpation. EXTREMITIES: Warm and well-perfused, no obvious deformity, slight asymmetry in the size of the calves, but no edema, erythema, or tenderness. SKIN: Clean, dry, and intact. LABS AND X-RAYS: 1. Chest x-ray, grossly unremarkable per my review. 2. EKG is a non-paced rhythm, not consistent with ischemia, likely left bundle pattern, slight irregularity, possibly underlying fib versus sinus with PACs. 3. Troponin and CK-MB are elevated. IMPRESSION: Defibrillator discharge. EMERGENCY DEPARTMENT COURSE: The patient was seen and evaluated. He is asymptomatic and hemodynamically stable. The patient does have elevation of troponin consistent with recent discharge of his defibrillator. The patient has not had any chest pain at all during this entire episode. He is not short of breath. He does intermittently wear oxygen at home, but is not requiring any supplemental O2 at this time. He will be admitted to the PCU under the care of Dr. Wilde, hospitalist, for further evaluation and treatment. All questions were answered and the patient was admitted. MD CHAVEZ WEST/darlin /[id number] d: 09/18/160 t: 09/20/16811, OUTPATIENT REPORT
--- NOTE | ~2016-09-18 | CON ---
PATIENT'S NAME: MIKE [facility] AGE: 76 Y [address] ROOM: [id number] [place], [place] [address] LOCATION: GPCU ADMIT DATE: 09/18/2016 Consultation DISCHARGE DATE: 09/19/2016 FAMILY PHYSICIAN: ANAMARIA VELASQUEZ APRN ATTENDING PHYSICIAN: Cornelius Moore DATE OF CONSULTATION: 09/18/2016 REFERRING PHYSICIAN: Damián Luevano MD CARDIOLOGY CONSULTATION REASON FOR CONSULTATION: Ventricular tachycardia with shock therapy from Bi-V ICD. HISTORY OF PRESENT ILLNESS: This is a patient well known to Dr. Luevano with a history of severe one- vessel disease to the LAD with ischemic cardiomyopathy post Bi-V ICD. 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 Therefore, he went back into the house to rest and had another 4 shocks. He called his , who was at work and she came home and they transferred him to [facility], [place]. He did have some ventricular tachycardia noted on an EKG with paced rhythm. He was therefore transferred to [facility] for further definitive care. Mr. Doty had been sent to [facility] in April of this year for a possible VT ablation which was not done. Medications were adjusted and pacemaker settings were changed, and he was doing quite well until 2 weeks ago. He was then admitted to the hospital for return of VT, and he was rebolused with amiodarone, and he did convert to a spontaneous sinus rhythm. He was then seen in clinic last and was doing fairly well at that time. He reports that he did not have any new shortness of breath. No new chest pain. His last heart catheterization was in January of 2016 and at that time, he has had PTCI stenting of the LAD. He has not had any further new shortness of breath. He denies orthopnea, PND, or increased peripheral edema. PAST MEDICAL HISTORY: 1. Coronary artery disease with myocardial infarction in 2005 with PTCI - stent to the LAD. 2. Ischemic cardiomyopathy. EF of 15% to 20% per echocardiogram on 01/21/2016. [place] Functional Class 2 to 3, post Bi-V ICD, [place]. 3. Essential hypertension. 4. Nonsustained ventricular tachycardia. 5. History of paroxysmal atrial fibrillation. 6. Long-term anticoagulation - warfarin. 7. Obstructive sleep apnea, using CPAP and oxygen. PATIENT'S NAME: MIKE [facility] AGE: 76 Y [address] ROOM: [id number] [place], [place] [address] LOCATION: GPCU ADMIT DATE: 09/18/2016 Consultation DISCHARGE DATE: 09/19/2016 FAMILY PHYSICIAN: ANAMARIA VELASQUEZ APRN ATTENDING PHYSICIAN: Cornelius Moore 8. History of adenocarcinoma of the right colon post resection. 9. Hypothyroidism. 10. Chronic kidney disease, stage 3. 11. High-risk medications in the form of amiodarone. 12. Gastroesophageal reflux disease. 13. Dyslipidemia. PAST SURGICAL HISTORY: 1. Inguinal hernia repair in 1968. 2. Colonoscopy in 2003. 3. Colonoscopy with polypectomy in 2015. 4. Left heart catheterization, 03/30/2006, severe one-vessel disease. Awaiting thallium viability study. 5. Left heart catheterization, 04/03/2006 post PTCI stent to the LAD. Left heart catheterization, 10/31/2009, patent stents noted. 6. Left heart catheterization, 01/21/2016, post PTCI stent of the LAD. 7. Bi-V ICD placement in 2003 with generator exchange in 2006 and 03/03/2011 and generator exchange, 07/09/2015. 8. Colon resection, 07/30/2015 for adenocarcinoma. 9. DC cardioversion, 04/16/2016. 10. Referral to [facility] for VT ablation, April 2016 with medication changes and pacemaker setting changes. ALLERGIES: NONE TO MEDICATION. CURRENT MEDICATIONS: 1. Acetaminophen 325 mg every 6 hours. 2. Amiodarone 200 mg p.o. b.i.d. 3. Aspirin 81 mg every day. 4. Lipitor 80 mg every bedtime. 5. Carvedilol 6.25 mg b.i.d. 6. Colace 100 mg every bedtime. 7. Lasix 20 mg every a.m. 8. Isosorbide 15 mg every day. 9. Levothyroxine 88 mcg p.o. every day. 10. Biofreeze as needed. 11. Omeprazole 20 mg every day. 12. K-Tab 20 mEq b.i.d. 13. Spironolactone 25 mg every day. 14. Tamsulosin 0.4 mg every night at bedtime. 15. Vitamin C. 16. Soft Gel daily. 17. Warfarin 1.5 mg 4 days a week and 3 mg 3 days a week. PATIENT'S NAME: [facility] AGE: 76 Y [address] ROOM: [id number] [place] [id number] LOCATION: GPCU ADMIT DATE: 09/18/2016 Consultation DISCHARGE DATE: 09/19/2016 FAMILY PHYSICIAN: ANAMARIA VELASQUEZ APRN ATTENDING PHYSICIAN: Cornelius Moore FAMILY HISTORY: Father at the age of 73 due to motor vehicle accident. Mother at the age of 90. She had diabetes mellitus, type 2. He is one of eight children. He had a brother with open heart surgery at the age of 70. Another brother with throat cancer. Sister with gastric cancer. He has a daughter with diabetes mellitus. SOCIAL HISTORY: He is a nonsmoker. He has chewed in the past. He is . REVIEW OF SYSTEMS: GENERAL: He denies any fevers or chills. No night sweats. No weight loss or weight gain. HEENT: Head; no history of headaches. Eyes; no blurred vision. He wears corrective lenses. Ears; no hearing loss. Nose; no epistaxis or rhinorrhea. Mouth; no gingival bleeding. Throat; denies sore throat, hoarseness, or difficulty swallowing. CARDIOVASCULAR: As per HPI. PULMONARY: Denies cough or hemoptysis. No new shortness of breath. GASTROINTESTINAL: Negative for nausea, vomiting, or diarrhea. No melena or hematochezia. He is post right colon resection for adenocarcinoma of the colon. 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 He also carries a history of chronic kidney disease. ENDOCRINE: There is no report of diabetes mellitus. He is hypothyroid, on Synthroid replacement therapy. NEUROLOGIC: He denies [employer] process changes. No anxiety. HEMATOLOGIC: No bleeding has been reported. MUSCULOSKELETAL: He has generalized arthralgias, especially back pain. PHYSICAL EXAMINATION: VITAL SIGNS: His weight is 103.1 kg. He is 5 feet 9 inches tall. Blood pressure is 108/58, heart rate 76, and temperature is 98.0. GENERAL APPEARANCE: He is alert and oriented. SKIN: Warm, dry, and pink. HEENT: Pupils equal, round, and react briskly to light. EOMs are intact. NECK: Soft and supple. No lymphadenopathy or thyromegaly. JVD is flat. CARDIOVASCULAR: Regular with a normal S1 and S2 without murmur, rub, or click. GASTROINTESTINAL: Abdomen is soft. Bowel sounds are present in all 4 quadrants. EXTREMITIES: No peripheral edema. No clubbing. No cyanosis. NEUROLOGIC: Neurologically, he is alert and oriented. Answers questions appropriately. Motor and sensory exams are grossly intact in the upper and lower extremities. His gait is steady. PATIENT'S NAME: [facility] AGE: 76 Y [address] ROOM: [address] [address] LOCATION: GPCU ADMIT DATE: 09/18/2016 Consultation DISCHARGE DATE: 09/19/2016 FAMILY PHYSICIAN: ANAMARIA VELASQUEZ APRN ATTENDING PHYSICIAN: Cornelius Moore DERMATOLOGIC: No skin, hair, or nail changes that are concerning. PSYCHIATRIC: Mood and affect are appropriate. LABORATORY DATA: His laboratories at [facility]: Potassium was 4.7, INR 1.85, BUN is 34, and creatinine is 2.26. CPK was 195, troponin I of 0.031, and CK-MB was 2.6. His CPK at [facility] was 257 to 297, CK-MB of 11.8 to 11.4, and troponin I of 4.87 to 4.95. Pro-BNP was 1920. BUN at [facility] was 30 with a creatinine of 1.7, sodium 140, potassium 4.3, and magnesium 2.7. His INR today was 187. ASSESSMENT AND PLAN: 1. Ischemic cardiomyopathy with shock therapy. We will interrogate his pacemaker and further recommendations will be forthcoming. Currently, he is on amiodarone 400 mg b.i.d. We will also continue the LUTHER and beta- radha therapy. 2. Hypertension. His blood pressures are under excellent control. 3. Hypothyroid. He will continue with his current Synthroid replacement therapy. 4. Long-term anticoagulation. His dose of warfarin has been adjusted. The Assessment and Plan, History of Present Illness, and Physical Exam are per Dr. Damián Luevano. We would like to thank Dr. Moore for allowing us to participate in this patient's care. CHRISTY POON APRN FOR MD VANESA GOLD/modl /[id number] d: 09/20/16 1707 t: 09/25/16 1654, CONSULTATION REPORT
[~2016-09-18 00:33] MED LIST changes: -ZOCOR20 MG PO
[2016-09-18 01:08] LABS: BASOPHIL # 0.1 K/uL (0.0-0.2); BASOPHIL % 0.7 %; EOSINOPHIL # 0.1 K/uL (0.0-0.5); EOSINOPHIL % 1.1 %; HEMATOCRIT 38.7 % (37.0-53.0); HEMOGLOBIN 12.4 g/dL (11.0-16.0); IMMATURE GRANULOCYTE % 0.3 %; LYMPHOCYTE # 1.4 K/uL (0.8-4.0); MCH 31.2 pg (27.0-34.0); MCV 97.5 fl (83.0-98.0); MONOCYTE # 0.8 K/uL (0.0-1.0); MONOCYTE % 10.7 %; MPV 10.2 fl (9.4-12.4); NEUTROPHIL # (ANC) 4.9 K/uL (1.4-9.0); NEUTROPHIL % 68.2 %; NRBC % 0 /100WBC (0-0.00); PLATELET COUNT 158 K/uL (150-450); RBC 3.97 M/uL (3.50-5.50); RDW-CV 15.4 % (11.9-14.6); WBC 7.2 K/uL (4.0-11.0)
[2016-09-18 01:33] LABS: ALBUMIN 3.1 gm/dL (3.5-5.0); ANION GAP 11.6 (10.0-19.0); CALCIUM 8.1 mg/dL (8.5-10.5); CREATININE 1.9 mg/dL (0.6-1.3); POTASSIUM 4.6 mMol/L (3.7-5.1); TOTAL BILIRUBIN 0.3 mg/dL (0.0-1.5); TOTAL PROTEIN 6.4 g/dL (6.0-8.4)
[2016-09-18 03:49] LABS: INR - (THERAPEUTIC) 1.95 (0.92-1.07); PROTIME 20.6 SECONDS (9.8-11.4)
[2016-09-18 03:59] LABS: ANION GAP 10.3 (10.0-19.0); CALCIUM 7.8 mg/dL (8.5-10.5); CREATININE 1.8 mg/dL (0.6-1.3); POTASSIUM 4.3 mMol/L (3.7-5.1)
[2016-09-18 04:01] LABS: MAGNESIUM 2.7 mg/dL (1.8-2.6)
[2016-09-18 04:15] LABS: ALBUMIN 2.9 gm/dL (3.5-5.0); ALK PHOS 107 IU/L (33-138); ALT 28 IU/L (12-78); AST 34 IU/L (10-40); TOTAL BILIRUBIN 0.3 mg/dL (0.0-1.5); TOTAL PROTEIN 6.1 g/dL (6.0-8.4)
[2016-09-18 07:12] LABS: INR - (THERAPEUTIC) 1.87 (0.92-1.07); PROTIME 19.8 SECONDS (9.8-11.4)
[2016-09-18 07:17] LABS: ANION GAP 12.3 (10.0-19.0); CALCIUM 7.8 mg/dL (8.5-10.5); CREATININE 1.7 mg/dL (0.6-1.3); POTASSIUM 4.3 mMol/L (3.7-5.1)
[2016-09-18 07:18] LABS: MAGNESIUM 2.7 mg/dL (1.8-2.6)
[2016-09-18] MEDS ORDERED: COLACE100 MG PO (09:52)
[2016-09-18] MEDS ORDERED: ZOCOR20 MG PO (09:57)
[2016-09-19 04:16] LABS: INR - (THERAPEUTIC) 1.9 (0.92-1.07); PROTIME 20.1 SECONDS (9.8-11.4)
[2016-09-19 04:21] LABS: ANION GAP 12.2 (10.0-19.0); CALCIUM 7.8 mg/dL (8.5-10.5); CREATININE 1.5 mg/dL (0.6-1.3); MAGNESIUM 2.6 mg/dL (1.8-2.6); POTASSIUM 4.2 mMol/L (3.7-5.1)
[2016-09-19] MEDS ORDERED: LIPITOR80 MG PO (14:44)
== END 2016-09-19 18:35 | disposition disaster alternative care site (69) | DRG 303 ==
LOC: GMED 00:33 → GPCU 01:32
PROVIDERS: Emergency Medicine; Hospitalist; ADMIT Internal Medicine
DX: I25.5 Ischemic cardiomyopathy (principal); I13.0 Hypertensive heart and chronic kidney disease with heart failure and stage 1 through stage 4 chronic kidney disease, or unspecified chronic kidney disease; I50.22 Chronic systolic (congestive) heart failure; I48.0 Paroxysmal atrial fibrillation; N13.8 Other obstructive and reflux uropathy; N18.3 Chronic kidney disease, stage 3 (moderate); G47.33 Obstructive sleep apnea (adult) (pediatric); E03.9 Hypothyroidism, unspecified; E78.5 Hyperlipidemia, unspecified; Z79.01 Long term (current) use of anticoagulants; N40.1 Benign prostatic hyperplasia with lower urinary tract symptoms; I25.10 Atherosclerotic heart disease of native coronary artery without angina pectoris; K21.9 Gastro-esophageal reflux disease without esophagitis; Z85.038 Personal history of other malignant neoplasm of large intestine; Z87.891 Personal history of nicotine dependence; Z95.5 Presence of coronary angioplasty implant and graft; Z91.19 Patient's noncompliance with other medical treatment and regimen; Z79.82 Long term (current) use of aspirin; Z79.899 Other long term (current) drug therapy; M54.9 Dorsalgia, unspecified; Z95.810 Presence of automatic (implantable) cardiac defibrillator
CPT/HCPCS: J0282; J7030; J7060

== ENCOUNTER → 2016-09-18 | Outpatient (CLI) | payer MEDICARE, OTHER ==
[~2016-09-18] MED LIST changes: +ALDACTONE25 MG PO; +BIOFREEZE89 ML TOP; +COREG6.25 MG PO; +LIPITOR80 MG PO; +TYLENOL325 MG PO; +ZOCOR20 MG PO
== END | disposition disaster alternative care site (69) ==
LOC: GAMB 00:19
DX: Z48.812 Encounter for surgical aftercare following surgery on the circulatory system (principal); Z95.810 Presence of automatic (implantable) cardiac defibrillator
CPT/HCPCS: A0425; A0428